=== PATIENT | male | born 1975 | race Caucasian/White ===

== ENCOUNTER 2017-02-17 12:50 | Inpatient (IN) ==
[2017-02-17] MEDS ORDERED: Ipratropium/Albuterol Neb 3 ML IH ONE (13:30)
[2017-02-17 13:46] LABS: Basophils # 0.1 K/mcL (0.0-0.2); Basophils % 0.6 %; Eosinophils # 0.2 K/mcL (0.0-0.6); Eosinophils % 2.1 %; Hematocrit 45.3 % (37.5-50.1); Hemoglobin 14.8 g/dL (12.9-16.9); Immature Granulocytes % 0.5 % (0-4); Lymphocytes # 2.5 K/mcL (0.6-4.6); Mean Corpuscular HGB Conc 32.7 g/dL (31.6-35.5); Mean Corpuscular Hemoglobin 29.1 pg (28.0-33.3); Mean Corpuscular Volume 89.2 fL (83.0-100.0); Mean Platelet Volume 8.8 fL (9.4-12.4); Monocytes # 0.7 K/mcL (0.0-1.3); Monocytes % 6.4 %; Neutrophils # 6.6 K/mcL (1.6-8.9); Platelet Count 263 K/mcL (140-400); Red Blood Count 5.08 M/mcL (4.19-5.50); Red Cell Distribution Width 12.7 % (11.5-14.5); Segmented Neutrophils % 65.4 %
[2017-02-17 13:53] LABS: Bilirubin,Urine Negative (Negative); Blood,Urine Trace (Negative); Clarity,Urine Clear (Clear); Color,Urine Yellow (Yellow); Glucose,Urine (UA) Normal (Normal); Ketones,Urine Negative (Negative); Leukocyte Esterase,Urine Negative (Negative); Nitrite,Urine Negative (Negative); Protein,Urine Negative (Neg-Trace); Specific Gravity,Urine 1.015 (1.010-1.025); Urobilinogen,Urine Normal (Normal)
[2017-02-17 13:55] LABS: Bacteria,Urine None Seen per hpf (None-Few); Hyaline Casts,Urine None Seen per lpf (None-Few); Squamous Epithelial Cell,Urine Moderate per lpf (None-Few); WBC,Urine 0-3 per hpf (0-3)
--- NOTE | 2017-02-17 13:57 | Emergency Department Note ---
Disposition Clinical Impression: Suicidal ideation Disposition: Admitted As Inpatient Condition: Fair Referrals: NO,PCP [Primary Care Provider] - Forms: ED Satisfaction Letter Psych HPI - General Chief Complaint: ED Psychiatric Symptoms Stated Complaint: SI, psych eval Time Seen by Provider: 02/17/17 13:18 Source: patient Mode of arrival: ambulatory Limitations: no limitations Nursing Notes Reviewed: Yes Vital Signs Reviewed: Yes - History of Present Illness HPI Narrative: Patient here for evaluation of suicidal ideation. Patient has a history of previous episode as well as stay in one A. Patient states that his divorces recently finalized and his kids are no longer talking to him. His father is sick. Patient has been holding a knife in his hand in the kitchen but is been unable to bring himself to complete suicide attempt. Patient presented to the ER seeking further psychiatric assistance. Patient has had a cough for approximately 2 months that is consistent with a chronic bronchitis. Patient takes albuterol as well as Symbicort at home. Similar symptoms approximately every year. Patient is not in any respiratory distress. Posterior wheezing. Albuterol ordered. Will reevaluate in medically clear. - Related Data Home Medications Medication Instructions Recorded Confirmed Albuterol Sulfate [Albuterol 2 puff IH Q4H PRN 12/29/15 02/17/17 Inhaler] Beclomethasone Diprop 80mcg [QVAR 1 puff IH BID 12/29/15 02/17/17 80 mcg] Lurasidone HCl [Latuda] 80 mg PO HS 12/29/15 02/17/17 Omeprazole [PriLOSEC] 40 mg PO DAILY 12/29/15 02/17/17 Amlodipine Besylate 10 mg PO DAILY 02/17/17 02/17/17 Atorvastatin Calcium [Lipitor] 20 mg PO HS 02/17/17 02/17/17 Cyclobenzaprine [Flexeril] 10 mg PO TID PRN 02/17/17 02/17/17 LORazepam [Ativan] 0.5 mg PO TID PRN 02/17/17 02/17/17 Lamotrigine [Lamotrigine] 200 mg PO DAILY 02/17/17 02/17/17 Levothyroxine Sodium 25 mcg PO QAM 02/17/17 02/17/17 Lisinopril/Hydrochlorothiazide 1 each PO DAILY 02/17/17 02/17/17 [Zestoretic 20-25 mg Tablet] SUMAtriptan [Imitrex] 50 mg PO DAILY PRN 02/17/17 02/17/17 Trazodone HCl 300 mg PO HS PRN 02/17/17 02/17/17 Allergies Allergy/AdvReac Type Severity Reaction Status Date / Time Penicillins AdvReac Hives Verified 02/17/17 13:04 Sulfa (Sulfonamide AdvReac Hives Verified 02/17/17 13:04 Antibiotics) All systems ED: reviewed and negative except as stated. Constitutional: Denies: fever, chills Eyes: Denies: eye pain Cardiovascular: Denies: chest pain, palpitations Respiratory: Denies: cough, dyspnea Gastrointestinal: Denies: abdominal pain, nausea Genitourinary: Denies: urgency, dysuria Musculoskeletal: Denies: back pain, neck pain Integumentary: Denies: rash Neurological: Denies: headache, weakness Psychiatric: Reports: anxiety, depression, suicidal thoughts Endocrine: Denies: fatigue Past Medical History - Past Medical History Medical history: Reports: COPD, GERD, hyperlipidemia, hypertension, thyroid disease Surgical history: Reports: appendectomy, other Psychiatric history: Reports: bipolar, depression, prior suicide attempt, previous psychiatric hospitalization - Social History Smoking Status: Current every day smoker Smokeless Tobacco Status: No Alcohol use: Reports: heavy Drug use: Reports: none Physical Exam - General Limitations: no limitations General appearance: alert, in no apparent distress - Head Head exam: atraumatic, normocephalic - Eye Eye exam: Present: normal appearance - ENT ENT exam: normal exam, normal oropharynx - Neck Neck exam: Present: normal inspection, full ROM - Chest Chest inspection: Present: normal inspection, symmetric chest wall rise. Absent : tenderness - Respiratory Respiratory exam: Present: wheezes (mild posterior b/l). Absent: respiratory distress - Cardiovascular Cardiovascular exam: Present: regular rate, normal rhythm - Abdominal Exam Abdominal exam: Present: soft, Non-Tender - Extremities Exam Extremities exam: Present: normal inspection - Back Exam Back exam: Present: normal inspection - Neurological Exam Neurological exam: Present: alert, oriented X3 - Psychiatric Psychiatric exam: Present: flat affect, suicidal ideation - Skin Skin exam: Present: warm, dry, intact Course - Consultations Consultation #1: Accepted by 1[facility] for admission. Vital Signs Temperature 98.5 F 02/17/17 13:02 Pulse Rate 97 02/17/17 13:02 Respiratory Rate 18 02/17/17 13:02 Blood Pressure 167/98 02/17/17 13:02 O2 Sat by Pulse Oximetry 94 02/17/17 13:02 Temperature 98.5 F 02/17/17 13:02 Pulse Rate 97 02/17/17 13:02 Respiratory Rate 16 02/17/17 14:49 Blood Pressure 167/98 02/17/17 13:02 O2 Sat by Pulse Oximetry 94 02/17/17 14:49 Oxygen Delivery Oxygen Delivery Room Air Psych - Lab Data Result diagrams: 02/17/17 13:40 02/17/17 13:40 Lab Results 02/17/17 02/17/17 02/17/17 Range/Units 13:15 13:15 13:40 WBC 10.1 (4.3-11.1) K/mcL RBC 5.08 (4.19-5.50) M/mcL Hgb 14.8 (12.9-16.9) g/dL Hct 45.3 (37.5-50.1) % MCV 89.2 (83.0-100.0) fL MCH 29.1 (28.0-33.3) pg MCHC 32.7 (31.6-35.5) g/dL RDW 12.7 (11.5-14.5) % Plt Count 263 (140-400) K/mcL MPV 8.8 L (9.4-12.4) fL Immature Gran % 0.5 (0-4) % Seg Neutrophils % 65.4 % Lymphocytes % 25.0 % Monocytes % 6.4 % Eosinophils % 2.1 % Basophils % 0.6 % Neutrophils # 6.6 (1.6-8.9) K/mcL Lymphocytes # 2.5 (0.6-4.6) K/mcL Monocytes # 0.7 (0.0-1.3) K/mcL Eosinophils # 0.2 (0.0-0.6) K/mcL Basophils # 0.1 (0.0-0.2) K/mcL Sodium (136-145) mEq/L Potassium (3.5-4.5) mEq/L Chloride (98-109) mEq/L Carbon Dioxide (19-29) mEq/L BUN (8-26) mg/dL Creatinine (0.72-1.25) mg/dL Est GFR ( Amer) (> 60) Est GFR (Non-Af Amer) (> 60) BUN/Creatinine Ratio (6-26) Glucose (70-99) mg/dL Calculated Osmolality (280-300) Calcium (8.6-10.8) mg/dL Urine Color Yellow (Yellow) Urine Clarity Clear (Clear) Urine pH 6.0 (5.0-8.0) pH Units Ur Specific [place] 1.015 (1.010-1.025) Urine Protein Negative (Neg-Trace) mg/dL Urine Glucose (UA) Normal (Normal) mg/dL Urine Ketones Negative (Negative) mg/dL Urine Blood Trace H (Negative) Urine Nitrite Negative (Negative) Urine Bilirubin Negative (Negative) Urine Urobilinogen Normal (Normal) mg/dL Ur Leukocyte Esterase Negative (Negative) Urine Microscopic RBC 3-5 H (0-3) per hpf Urine Microscopic WBC 0-3 (0-3) per hpf Ur Squamous Epith Cells Moderate H (None-Few) per lpf Urine Bacteria None Seen (None-Few) per hpf Hyaline Casts None Seen (None-Few) per lpf Salicylates (15-30) mg/dL Urine Opiates Screen Negative (Lyiabq=479) ng/mL Acetaminophen (10-30) mcg/mL Ur Barbiturates Screen Negative (Ywhwsp=130) ng/mL Ur Phencyclidine Scrn Negative (Cutoff=25) ng/mL Ur Amphetamines Screen Negative (Rnacya=4886) ng/mL U Benzodiazepines Scrn Negative (Klnwhr=806) ng/mL Urine Cocaine Screen Negative (Cutoff= 300) ng/mL U Marijuana (THC) Screen Negative (Cutoff = 50) ng/mL Ethyl Alcohol (0-10) mg/dL 02/17/17 Range/Units 13:40 WBC (4.3-11.1) K/mcL RBC (4.19-5.50) M/mcL Hgb (12.9-16.9) g/dL Hct (37.5-50.1) % MCV (83.0-100.0) fL MCH (28.0-33.3) pg MCHC (31.6-35.5) g/dL RDW (11.5-14.5) % Plt Count (140-400) K/mcL MPV (9.4-12.4) fL Immature Gran % (0-4) % Seg Neutrophils % % Lymphocytes % % Monocytes % % Eosinophils % % Basophils % % Neutrophils # (1.6-8.9) K/mcL Lymphocytes # (0.6-4.6) K/mcL Monocytes # (0.0-1.3) K/mcL Eosinophils # (0.0-0.6) K/mcL Basophils # (0.0-0.2) K/mcL Sodium 142 (136-145) mEq/L Potassium 3.6 (3.5-4.5) mEq/L Chloride 107 (98-109) mEq/L Carbon Dioxide 27 (19-29) mEq/L BUN 11 (8-26) mg/dL Creatinine 1.08 (0.72-1.25) mg/dL Est GFR ( Amer) > 60 (> 60) Est GFR (Non-Af Amer) > 60 (> 60) BUN/Creatinine Ratio 10 (6-26) Glucose 189 H (70-99) mg/dL Calculated Osmolality 298 (280-300) Calcium 8.8 (8.6-10.8) mg/dL Urine Color (Yellow) Urine Clarity (Clear) Urine pH (5.0-8.0) pH Units Ur Specific [place] (1.010-1.025) Urine Protein (Neg-Trace) mg/dL Urine Glucose (UA) (Normal) mg/dL Urine Ketones (Negative) mg/dL Urine Blood (Negative) Urine Nitrite (Negative) Urine Bilirubin (Negative) Urine Urobilinogen (Normal) mg/dL Ur Leukocyte Esterase (Negative) Urine Microscopic RBC (0-3) per hpf Urine Microscopic WBC (0-3) per hpf Ur Squamous Epith Cells (None-Few) per lpf Urine Bacteria (None-Few) per hpf Hyaline Casts (None-Few) per lpf Salicylates < 5.0 L (15-30) mg/dL Urine Opiates Screen (Ygkexx=359) ng/mL Acetaminophen < 1.0 L (10-30) mcg/mL Ur Barbiturates Screen (Djotar=173) ng/mL Ur Phencyclidine Scrn (Cutoff=25) ng/mL Ur Amphetamines Screen (Gxnvqi=2177) ng/mL U Benzodiazepines Scrn (Pyuvpc=495) ng/mL Urine Cocaine Screen (Cutoff= 300) ng/mL U Marijuana (THC) Screen (Cutoff = 50) ng/mL Ethyl Alcohol < 10 (0-10) mg/dL - EKG Data EKG attestation: Yes I reviewed and interpreted this EKG. EKG results narrative: Now sinus rhythm with a ventricular rate of 84 bpm. NC interval 172. QRS 96. QTC 426. Patient has no significant ST elevations or depressions. Patient has nonspecific T-wave abnormalities which include flattening of the T waves in the precordial leads. There is no previous EKG for comparison. Psychiatric Medical Clearance - Medical Clearance Checklist Medical History: No Social History Section defined Current Vitals: Last Vital Signs Temp 98.5 F 02/17/17 13:02 Pulse 97 02/17/17 13:02 Resp 16 02/17/17 14:49 BP 167/98 02/17/17 13:02 Pulse Ox 94 02/17/17 14:49 Psychiatric Lab Panel: Drug Levels and Toxicity 02/17/17 02/17/17 13:15 13:40 Urine Opiates Screen Negative Acetaminophen < 1.0 L Ur Barbiturates Screen Negative Ur Phencyclidine Scrn Negative Ur Amphetamines Screen Negative U Benzodiazepines Scrn Negative Urine Cocaine Screen Negative U Marijuana (THC) Screen Negative Ethyl Alcohol < 10 Abnormal Labs: Abnormal lab results MPV 8.8 fL (9.4-12.4) L 02/17/17 13:40 Glucose 189 mg/dL (70-99) H 02/17/17 13:40 Urine Blood Trace (Negative) H 02/17/17 13:15 Urine Microscopic RBC 3-5 per hpf (0-3) H 02/17/17 13:15 Ur Squamous Epith Cells Moderate per lpf (None-Few) H 02/17/17 13:15 Salicylates < 5.0 mg/dL (15-30) L 02/17/17 13:40 Acetaminophen < 1.0 mcg/mL (10-30) L 02/17/17 13:40 Statement of Medical Clearance: I have evaluated the patient, reviewed diagnostic information, and certify that the patient's medical condition is sufficiently stable that transfer to the psychiatric unit does not pose a significant risk of deterioration. Attestation Statement - Attestation Attestation: Patient was seen with resident physician. I reviewed the history, physical, assessment and plan, and agree with the findings. I also personally evaluated this patient and had [id number] time with this patient. 41-year-old male presents emergency Department chief complaint suicidal ideation. Patient states that he has had a difficult time over the last several weeks with things in his life getting progressively worse and increasing stress levels. He says he just feels like he wants to hurt himself at this point. He says even sitting holding a knife but he has not yet attempted to hurt himself with it. On examination vital signs are stable ENT is unremarkable. Heart and lungs are normal. Abdomen is soft and nontender. Extremities unremarkable. Neurologically patient is intact. Psychiatric patient appears depressed. We will do usual workup for presyncopal evaluation, and have one A, evaluated the patient he has been on 1 in the past. I agree with the resident physician assessment and plan.
[2017-02-17 14:00] LABS: Amphetamine Screen,Urine Negative ng/mL (Cutoff=1000); Barbiturate Screen,Urine Negative ng/mL (Cutoff=200); Benzodiazepines Screen,Urine Negative ng/mL (Cutoff=200); Cannabinoid Screen,Urine Negative ng/mL (Cutoff = 50); Cocaine Screen,Urine Negative ng/mL (Cutoff= 300); Opiate Screen,Urine Negative ng/mL (Cutoff=300); Phencyclidine Screen,Urine Negative ng/mL (Cutoff=25)
[2017-02-17 14:01] LABS: Acetaminophen < 1.0 mcg/mL (10-30); BUN/Creatinine Ratio 10 (6-26); Blood Urea Nitrogen 11 mg/dL (8-26); Calcium 8.8 mg/dL (8.6-10.8); Carbon Dioxide 27 mEq/L (19-29); Chloride 107 mEq/L (98-109); Ethanol < 10 mg/dL (0-10); Glucose 189 mg/dL (70-99); Osmolality,Calculated 298 (280-300); Potassium 3.6 mEq/L (3.5-4.5); Salicylate < 5.0 mg/dL (15-30); Sodium 142 mEq/L (136-145); eGFR For African Americans > 60 (> 60); eGFR For Non-African Americans > 60 (> 60)
[2017-02-17] MEDS ORDERED: Haloperidol Lactate 5 MG/ML VIAL IM PRN (16:42)
[2017-02-17] MEDS ORDERED: Mag Hydrox/Al Hydrox/Simeth 30 ML UDC PO PRN (16:42)
[2017-02-17] MEDS ORDERED: *HR* LORazepam 2 MG/ML VIAL IM PRN (16:42)
[2017-02-17] MEDS ORDERED: MOM Conc 10 ML UD.LIQ PO PRN (16:42)
[2017-02-17] MEDS ORDERED: traZODone 50 MG TABLET PO PRN (16:42)
[2017-02-17] MEDS ORDERED: *HR* LORazepam 1 MG TABLET PO PRN (16:42)
[2017-02-17] MEDS ORDERED: *HR* LORazepam 0.5 MG TABLET PO PRN (16:44)
[2017-02-17] MEDS ORDERED: SUMAtriptan succinate 50 MG TABLET PO PRN (16:44)
[2017-02-17] MEDS ORDERED: SUMAtriptan succinate 25 MG TABLET PO PRN (17:00)
[2017-02-17] MEDS: lamoTRIgine 100 MG TABLET PO SCH (17:49)
[2017-02-17] MEDS: amLODIPine 5 MG TABLET PO SCH (17:50)
[2017-02-17] MEDS: Nicotine 2 MG GUM BC PRN ×2 (18:13→21:24)
[2017-02-17] MEDS: traZODone 50 MG TABLET PO PRN (21:24)
[2017-02-17] MEDS: Ibuprofen 400 MG TABLET PO PRN (21:25)
[2017-02-17] MEDS: Beclomethasone 80mcg MDI IH SCH (22:05)
[2017-02-18] MEDS: Levothyroxine 25 MCG TABLET PO SCH (06:34)
[2017-02-18] MEDS: Beclomethasone 80mcg MDI IH SCH ×2 (09:15→21:04)
[2017-02-18] MEDS: lamoTRIgine 100 MG TABLET PO SCH (09:16)
[2017-02-18] MEDS: Nicotine 2 MG GUM BC PRN ×2 (09:16→13:46)
[2017-02-18] MEDS: amLODIPine 5 MG TABLET PO SCH (09:19)
--- NOTE | 2017-02-18 15:24 | Psychiatry History & Physical ---
Date of Encounter: 02/18/17 Time of Encounter: 15:10 History of Present Illness Patient Stated Chief Complaint: suicidal ideation Medicare Admission Attestation: For traditional Medicare patients the provided hospital inpatient services are reasonable and necessary and in the case of services not specified as inpatient -only under 42 CFR 419.22 (n), that they are appropriately provided as inpatient services in accordance 42 CFR 412.3. For Critical Access Hospital the patient may reasonably be expected to be discharged or transferred to a hospital within 96 hours after admission to the Critical Access Hospital. Admitted From: Home Plans for Post Hospital Care: Transfer Inp Rehab Fac History of Present Illness: Mr. Araujo is a 41 year old male who was admitted secondary to suicidal ideation. Reports a friend drove him to the ER because he was missing work, drinking, and getting in fights. Depressed over divorce, lack of support from his children, and father's illness. Believes alcohol is his biggest problem. At his peak he could drink a fifth of liquor and a case of beer. Currently drinking a case. Has experienced withdrawal in the past (shakes and sweats, never seizures or DTs). Not currently withdrawing. Last drink two days ago. Has experience with multiple other substances but denies recent use of anything but THC and alcohol. Can be violent when intoxicated. Legal history including Felonious Assault. Several metabolic issues including obesity, HTN, and HLD. Already prescribed Lamictal, Latuda, and Trazodone by primary psychiatrist. No history of a thought disorder and he is unsure why Latuda was started. Interested in an antidepressant. Discussed how meds likely will not be effective until he is sober for a while. Agreeable to starting Zoloft which may provide some benefit but likely will not be fully effective until his brain chemistry resets. Really wants to go to rehab. Has already called a place in [place] he feels will benefit him. Tried their program in the past but reports he walked out. Hoping a repeat trial will help him. Feels he is ready to go to rehab but that he cannot go home. Reports there is alcohol in his house and he will start drinking again. Reports a history of failed suicide attempts. Believes his current suicidality is contingent on whether or not he receives help for his drinking. Past Med Surg Social Fam HX - Past Medical History Medical history: COPD, GERD, hyperlipidemia, hypertension, thyroid disease - Past Psychiatric History Psychiatric history: Reports: depression, prior suicide attempt, previous psychiatric hospitalization Past psychiatric history details: Previous admission to [facility]. Staff are familiar with him. Prior overdose attempt on pills. - Past Surgical History Surgical History: appendectomy, other - Social History Smoking Status: Current every day smoker Smokeless Tobacco Status: No Alcohol use: heavy Drug use: none Medications & Allergies Albuterol Sulfate [Albuterol Inhaler] 2 puff IH Q4H PRN 12/29/15 [History] Beclomethasone Diprop 80mcg [QVAR 80 mcg] 1 puff IH BID 12/29/15 [History] Lurasidone HCl [Latuda] 80 mg PO HS 12/29/15 [History] Omeprazole [PriLOSEC] 40 mg PO DAILY 12/29/15 [History] Amlodipine Besylate 10 mg PO DAILY 02/17/17 [History] Atorvastatin Calcium [Lipitor] 20 mg PO HS 02/17/17 [History] Cyclobenzaprine [Flexeril] 10 mg PO TID PRN 02/17/17 [History] LORazepam [Ativan] 0.5 mg PO TID PRN 02/17/17 [History] Lamotrigine [Lamotrigine] 200 mg PO DAILY 02/17/17 [History] Levothyroxine Sodium 25 mcg PO QAM 02/17/17 [History] Lisinopril/Hydrochlorothiazide [Zestoretic 20-25 mg Tablet] 1 each PO DAILY 06/28 [History] SUMAtriptan [Imitrex] 50 mg PO DAILY PRN 02/17/17 [History] Trazodone HCl 300 mg PO HS PRN 02/17/17 [History] Allergies Penicillins Adverse Reaction (Verified 02/17/17 13:04) Hives Sulfa (Sulfonamide Antibiotics) Adverse Reaction (Verified 02/17/17 13:04) Hives Review of Systems Constitutional: Denies: fever, chills, weakness, weight change Eyes: Denies: eye pain, vision change Ears, Nose, Throat: Denies: ear pain, throat pain, dental pain, hearing loss, congestion Cardiovascular: Denies: chest pain, palpitations, dyspnea on exertion Respiratory: Reports: wheezes. Denies: cough, dyspnea Gastrointestinal: Denies: abdominal pain, nausea, vomiting, diarrhea, constipation Genitourinary male: Denies: urgency, dysuria, frequency, genital lesions Genitourinary female: Denies: urgency, dysuria, frequency, abnormal menses, dyspareunia Musculoskeletal: Reports: back pain. Denies: joint swelling, joint pain Integumentary: Denies: rash, lesions, pruritus Neurological: Denies: headache, weakness, numbness, memory loss Endocrine: Denies: fatigue, heat or cold intolerance Hematologic/Lymphatic: Denies: easy bruising, lymphadenopathy Allergic/Immunologic: Denies: urticaria, itchy eyes Mental Status Exam Patient orientation: Yes Person, Yes Time, Yes Place Level of alertness: Alert Patient appearance: Appropriate Behavior: calm, cooperative Psychomotor activity: Normal Eye contact: Maintains Eye Contact Mood description: Depressed Affect description: congruent with mood Speech pattern: Normal rate, Normal rhythm, Normal tone Speech volume: Normal Thought process: Linear, Goal Oriented Thought content: Yes Suicidal ideation, No Homicidal ideation, No Overt delusions Perceptual disturbances: No Auditory hallucinations, No Visual hallucinations Attention span: Capable of Focused Attention Memory description: Grossly Intact Patient reliability: Reliable Historian Intelligence estimate: Average Judgment: Limited Insight: Minimal Exam - HEENT Head exam IM: Present: atraumatic Eye exam IM: Present: EOMI ENT exam IM: Present: mucous membranes moist - Neurological Neurological exam IM: Present: alert, normal gait, oriented X3 - Respiratory Respiratory exam IM: Present: wheezes - GI/Abdominal GI/Abdominal exam IM: Present: normal bowel sounds - Extremities Extremities exam IM: Present: full ROM - Skin Skin exam IM: Present: normal color Results - Vital Signs Vital signs: Temp Pulse Resp BP Pulse Ox 97.7 F 76 16 140/96 94 02/18/17 09:00 02/18/17 09:00 02/18/17 09:00 02/18/17 09:00 02/17/17 14:49 - Labs Labs: Laboratory Last Values WBC 10.1 K/mcL (4.3-11.1) 02/17/17 13:40 RBC 5.08 M/mcL (4.19-5.50) 02/17/17 13:40 Hgb 14.8 g/dL (12.9-16.9) 02/17/17 13:40 Hct 45.3 % (37.5-50.1) 02/17/17 13:40 MCV 89.2 fL (83.0-100.0) 02/17/17 13:40 MCH 29.1 pg (28.0-33.3) 02/17/17 13:40 MCHC 32.7 g/dL (31.6-35.5) 02/17/17 13:40 RDW 12.7 % (11.5-14.5) 02/17/17 13:40 Plt Count 263 K/mcL (140-400) 02/17/17 13:40 MPV 8.8 fL (9.4-12.4) L 02/17/17 13:40 Immature Gran % 0.5 % (0-4) 02/17/17 13:40 Seg Neutrophils % 65.4 % 02/17/17 13:40 Lymphocytes % 25.0 % 02/17/17 13:40 Monocytes % 6.4 % 02/17/17 13:40 Eosinophils % 2.1 % 02/17/17 13:40 Basophils % 0.6 % 02/17/17 13:40 Neutrophils # 6.6 K/mcL (1.6-8.9) 02/17/17 13:40 Lymphocytes # 2.5 K/mcL (0.6-4.6) 02/17/17 13:40 Monocytes # 0.7 K/mcL (0.0-1.3) 02/17/17 13:40 Eosinophils # 0.2 K/mcL (0.0-0.6) 02/17/17 13:40 Basophils # 0.1 K/mcL (0.0-0.2) 02/17/17 13:40 Sodium 142 mEq/L (136-145) 02/17/17 13:40 Potassium 3.6 mEq/L (3.5-4.5) 02/17/17 13:40 Chloride 107 mEq/L (98-109) 02/17/17 13:40 Carbon Dioxide 27 mEq/L (19-29) 02/17/17 13:40 BUN 11 mg/dL (8-26) 02/17/17 13:40 Creatinine 1.08 mg/dL (0.72-1.25) 02/17/17 13:40 Est GFR ( Amer) > 60 (> 60) 02/17/17 13:40 Est GFR (Non-Af Amer) > 60 (> 60) 02/17/17 13:40 BUN/Creatinine Ratio 10 (6-26) 02/17/17 13:40 Glucose 189 mg/dL (70-99) H 02/17/17 13:40 Calculated Osmolality 298 (280-300) 02/17/17 13:40 Calcium 8.8 mg/dL (8.6-10.8) 02/17/17 13:40 Urine Color Yellow (Yellow) 02/17/17 13:15 Urine Clarity Clear (Clear) 02/17/17 13:15 Urine pH 6.0 pH Units (5.0-8.0) 02/17/17 13:15 Ur Specific [place] 1.015 (1.010-1.025) 02/17/17 13:15 Urine Protein Negative mg/dL (Neg-Trace) 02/17/17 13:15 Urine Glucose (UA) Normal mg/dL (Normal) 02/17/17 13:15 Urine Ketones Negative mg/dL (Negative) 02/17/17 13:15 Urine Blood Trace (Negative) H 02/17/17 13:15 Urine Nitrite Negative (Negative) 02/17/17 13:15 Urine Bilirubin Negative (Negative) 02/17/17 13:15 Urine Urobilinogen Normal mg/dL (Normal) 02/17/17 13:15 Ur Leukocyte Esterase Negative (Negative) 02/17/17 13:15 Urine Microscopic RBC 3-5 per hpf (0-3) H 02/17/17 13:15 Urine Microscopic WBC 0-3 per hpf (0-3) 02/17/17 13:15 Ur Squamous Epith Cells Moderate per lpf (None-Few) H 02/17/17 13:15 Urine Bacteria None Seen per hpf (None-Few) 02/17/17 13:15 Hyaline Casts None Seen per lpf (None-Few) 02/17/17 13:15 Salicylates < 5.0 mg/dL (15-30) L 02/17/17 13:40 Urine Opiates Screen Negative ng/mL (Tmpkzt=721) 02/17/17 13:15 Acetaminophen < 1.0 mcg/mL (10-30) L 02/17/17 13:40 Ur Barbiturates Screen Negative ng/mL (Vnwhmk=601) 02/17/17 13:15 Ur Phencyclidine Scrn Negative ng/mL (Cutoff=25) 02/17/17 13:15 Ur Amphetamines Screen Negative ng/mL (Lytkia=4553) 02/17/17 13:15 U Benzodiazepines Scrn Negative ng/mL (Fnfytl=113) 02/17/17 13:15 Urine Cocaine Screen Negative ng/mL (Cutoff= 300) 02/17/17 13:15 U Marijuana (THC) Screen Negative ng/mL (Cutoff = 50) 02/17/17 13:15 Ethyl Alcohol < 10 mg/dL (0-10) 02/17/17 13:40 Assessment and Plan (1) Depression Current visit: No Status: Acute Plan: Admit inpatient for safety and stabilization, Close observation, Suicide Precautions per unit protocol, Encourage participation in unit milieu, Group Therapy, Monitor sleep, Monitor appetite, Secure weapons Risks, benefits, side effects, alternatives discussed w/pt: Yes Patient agreeable to treatment : Yes Plans for Post Hospital Care: Transfer Inp Rehab Fac Estimated Length of Stay (Days): 3 Qualifiers: Depression Type: major depressive disorder Major depression recurrence: recurrent Active/Remission status: currently active Major depression episode severity: severe Psychotic features: without psychotic features Qualified Code(s): F33.2 - Major depressive disorder, recurrent severe without psychotic features
[2017-02-18] MEDS: Nicotine 21 MG PATCH.TD24 TD SCH (18:22)
[2017-02-18] MEDS: traZODone 50 MG TABLET PO PRN (21:05)
[2017-02-18] MEDS: Ibuprofen 400 MG TABLET PO PRN (21:07)
[2017-02-19] MEDS: Levothyroxine 25 MCG TABLET PO SCH (06:32)
[2017-02-19] MEDS: Nicotine 21 MG PATCH.TD24 TD SCH (09:32)
[2017-02-19] MEDS: lamoTRIgine 100 MG TABLET PO SCH (09:33)
[2017-02-19] MEDS: Beclomethasone 80mcg MDI IH SCH (09:33)
[2017-02-19] MEDS: amLODIPine 5 MG TABLET PO SCH (09:34)
[2017-02-19 09:52] VITALS: BP 156/100
--- NOTE | 2017-02-19 12:55 | Discharge Summary ---
Date of Encounter: 02/19/17 Time of Encounter: 12:49 Diagnosis - Discharge Diagnosis (1) Depression Status: Acute Qualifiers: Depression Type: major depressive disorder Major depression recurrence: recurrent Active/Remission status: currently active Major depression episode severity: severe Psychotic features: without psychotic features Qualified Code(s): F33.2 - Major depressive disorder, recurrent severe without psychotic features Medications - Discharge Medications Prescriptions: Amlodipine Besylate 10 mg PO DAILY #30 tablet Atorvastatin Calcium [Lipitor] 20 mg PO HS #30 tablet lamoTRIgine [Lamotrigine] 200 mg PO DAILY #30 tablet Levothyroxine Sodium 25 mcg PO QAM #30 tablet Lisinopril/Hydrochlorothiazide [Zestoretic 20-25 mg Tablet] 1 each PO DAILY #30 tablet Omeprazole [PriLOSEC] 40 mg PO DAILY #30 capsule. Sertraline [Zoloft] 50 mg PO DAILY #30 tablet Trazodone HCl 300 mg PO HS PRN #30 tablet PRN Reason: Sleep Albuterol Sulfate [Albuterol Inhaler] 2 puff IH Q4H PRN 12/29/15 [History] Beclomethasone Diprop 80mcg [QVAR 80 mcg] 1 puff IH BID 12/29/15 [History] Amlodipine Besylate 10 mg PO DAILY #30 tablet 02/19/17 [Rx] Atorvastatin Calcium [Lipitor] 20 mg PO HS #30 tablet 02/19/17 [Rx] Levothyroxine Sodium 25 mcg PO QAM #30 tablet 02/19/17 [Rx] Lisinopril/Hydrochlorothiazide [Zestoretic 20-25 mg Tablet] 1 each PO DAILY #30 tablet 02/19/17 [Rx] Omeprazole [PriLOSEC] 40 mg PO DAILY #30 capsule. 02/19/17 [Rx] Sertraline [Zoloft] 50 mg PO DAILY #30 tablet 02/19/17 [Rx] Trazodone HCl 300 mg PO HS PRN #30 tablet 02/19/17 [Rx] lamoTRIgine [Lamotrigine] 200 mg PO DAILY #30 tablet 02/19/17 [Rx] Allergies Penicillins Adverse Reaction (Verified 02/17/17 13:04) Hives Sulfa (Sulfonamide Antibiotics) Adverse Reaction (Verified 02/17/17 13:04) Hives Provider Date of admission: 02/17/17 16:42 Primary care physician: PCP NO Discharging clinician: Diana Trevino Assessment and Plan - Patient/Caregiver Discharge Instructions Activity: resume usual activities as tolerated Diet: low fat, low cholesterol Additional Instructions: You are going to [facility] in [place], [place]. [facility] staff will schedule all of your outpatient medical and mental health follow-up after your arrival into the program. The mental health crisis line for [facility] is [phone]. - Follow up Plan Follow up with: NO,PCP [Primary Care Provider] - Functional capacity at discharge: independent ambulation Overall status at discharge: Stable Disposition: Transfer Inpatient Rehab Fac Hospital Course Hospital course: Mr. Araujo is a 41 year old male admitted for SI and "drinking like a fish." Admitted SI was largely due to excessive drinking and stated his main goal was to get into a rehab in [place]. Walked away from rehab several years ago but now feels ready to try again. Losing and children and he is hoping by committing to rehab he can win them back. No evidence of withdrawal in the hospital. Started on an antidepressant but understands it will have limited effect until he has been sober for a while. Took the initiative to call the [facility] himself and started the process to get himself accepted. They were able to take him right away so he is being discharged with a thirty day supply of his meds (their request). Transportation being arranged. Denying any suicidal or homicidal ideation, plan or intent today knowing he is getting help with his alcohol dependence. - Time Spent with Patient Total time spent providing and/or coordinating discharge services: Quality - Multiple Antipsychotics Patient discharged on 2 or more antipsychotic medications: No Procedures - Procedures Procedures: Medication Management, Crisis Stabilization, Supportive Therapy, Group Therapy Mental Status Exam - Mental Status Exam Patient orientation: Yes Person, Yes Time, Yes Place Level of alertness: Alert Patient appearance: Appropriate, Well Groomed Behavior: calm, cooperative Psychomotor activity: Normal Eye contact: Maintains Eye Contact Mood description: Anxious Affect description: congruent with mood, full range Speech pattern: Normal rate, Normal rhythm, Normal tone Speech Volume: Normal Thought process: Linear, Goal Oriented Thought Content: No Suicidal ideation, No Homicidal ideation, No Overt delusions Perceptual Disturbances: No Auditory hallucinations, No Visual hallucinations Judgment: Limited Insight: Partial
--- NOTE | 2017-02-23 16:55 | Electrocardiograph Report ---
[facility] Test Date: 2017-02-17 Pat Name: Raymond Araujo Department: 102 Room: 1A45 Gender: M [employer] Equipment [employer]: : [id number] Requested By: Daren Alcala Order Number: [id number] Reading MD: Estevan Brooks MD Measurements Intervals [place] Rate: 84 P: 38 ND: 172 QRS: -6 QRSD: 96 T: 79 QT: 385 QTc: 426 Interpretive Statements SINUS RHYTHM NONSPECIFIC T-WAVE ABNORMALITY Electronically Signed On 02-23-2017 16:53:37 EDT by Estevan Brooks MD
== END 2017-02-19 16:30 | DRG 751 ==
LOC: EMEROO 12:50 → 1ANU 12:50
PROVIDERS: ADMIT Psychiatry & Neurology Psychiatry; ATTEND Psychiatry & Neurology Psychiatry

== ENCOUNTER 2019-07-15 05:45 | Inpatient (IN) ==
[2019-07-15] MEDS ORDERED: MOM Conc 10 ML UD.LIQ PO PRN (08:08)
[2019-07-15] MEDS ORDERED: Mag Hydrox/Al Hydrox/Simeth 30 ML UDC PO PRN (08:08)
[2019-07-15] MEDS ORDERED: *HR* LORazepam 1 MG TABLET PO PRN (08:08)
[2019-07-15] MEDS ORDERED: Haloperidol Lactate 5 MG/ML VIAL IM PRN (08:08)
[2019-07-15] MEDS ORDERED: *HR* LORazepam 2 MG/ML VIAL IM PRN (08:08)
[2019-07-15] MEDS ORDERED: traZODone 50 MG TABLET PO PRN ×2 (08:08→12:25)
[2019-07-15] MEDS: Nicotine 21 MG PATCH.TD24 TD SCH (08:57)
[2019-07-15] MEDS ORDERED: Albuterol 2.5 MG/3 ML NEBULIZER IH PRN (12:27)
[2019-07-15] MEDS: Acetaminophen 325 MG TABLET PO PRN ×2 (13:19→21:06)
[2019-07-15] MEDS: Lisinopril-HCTZ 20-12.5mg TABLET PO SCH (13:20)
[2019-07-15] MEDS: amLODIPine 5 MG TABLET PO SCH (13:20)
[2019-07-15] MEDS: hydrOXYzine pamoate 25 MG CAPSULE PO PRN (21:04)
[2019-07-15] MEDS: lamoTRIgine 100 MG TABLET PO SCH (21:04)
[2019-07-16] MEDS: amLODIPine 5 MG TABLET PO SCH (09:29)
[2019-07-16] MEDS: Lisinopril-HCTZ 20-12.5mg TABLET PO SCH (09:30)
[2019-07-16] MEDS: Nicotine 21 MG PATCH.TD24 TD SCH (09:30)
[2019-07-16] MEDS: Acetaminophen 325 MG TABLET PO PRN (10:57)
[2019-07-16] MEDS: hydrOXYzine pamoate 25 MG CAPSULE PO PRN (21:31)
[2019-07-16] MEDS: lamoTRIgine 100 MG TABLET PO SCH (21:31)
[2019-07-16] MEDS: traZODone 50 MG TABLET PO SCH (21:32)
[2019-07-17] MEDS: amLODIPine 5 MG TABLET PO SCH (08:56)
[2019-07-17] MEDS: Lisinopril-HCTZ 20-12.5mg TABLET PO SCH (08:56)
[2019-07-17] MEDS: Nicotine 21 MG PATCH.TD24 TD SCH (08:57)
[2019-07-17] MEDS: Acetaminophen 325 MG TABLET PO PRN ×2 (08:58→16:12)
[2019-07-17] MEDS: lamoTRIgine 100 MG TABLET PO SCH (21:35)
[2019-07-17] MEDS: traZODone 50 MG TABLET PO SCH (21:35)
[2019-07-18] MEDS: amLODIPine 5 MG TABLET PO SCH (08:23)
[2019-07-18] MEDS: Lisinopril-HCTZ 20-12.5mg TABLET PO SCH (08:24)
[2019-07-18] MEDS: Nicotine 21 MG PATCH.TD24 TD SCH (08:24)
[2019-07-18 09:30] VITALS: BP 156/92
[2019-07-18] MEDS ORDERED: FLU Vac QV 19-20 (6Month+)/PF 0.5 ML SYRINGE IM ONE (10:59)
== END 2019-07-18 18:05 | DRG 753 ==
LOC: EMEROOARM 05:45 → 1ANU 05:45 → SUATTDRO 07:41 → 1ANU 07:59
PROVIDERS: ADMIT Psychiatry & Neurology Psychiatry; ATTEND Psychiatry & Neurology Psychiatry